=== PATIENT | male | born 1945 | race Caucasian/White ===

== ENCOUNTER 2020-12-30 07:07 | Emergency (ER) | payer OTHER, SELFPAY ==
[~2020-12-30] VITALS: Ht 182.9 cm; Wt 102.1 kg
[~2020-12-30 07:07] MED LIST: ASPI-1155 PO; CHOL100024 PO; FISH OIL PO; LISI20TA30 PO; MULT-634 PO; PROP120C2 PO; TERA10CA4 PO; VITAMIN B PO; VITAMIN C PO; [UNRECOGNIZED DRUG - CODE] PO
--- NOTE | 2020-12-30 07:07 | NUR ---
Patient to ER bed 1 to gown for evaluation. Side rails up. Report given to BERHANE METCALF.
[2020-12-30] MEDS ORDERED: VECURONIUM BROMIDE 10 MG/VIAL (NORCURON) IV ONE (07:08)
[2020-12-30] MEDS ORDERED: ETOMIDATE 20 MG/ 10 ML VIAL (AMIDATE) IVP ONE (07:08)
[2020-12-30] MEDS ORDERED: ROCURONIUM BROMIDE 10 MG/ML (ZEMURON) IV ONE (07:08)
--- NOTE | 2020-12-30 07:08 | NUR ---
PT INTUBATED UPON ARRIVAL 7.5 ET AND 25 AT TEETH.
[2020-12-30 07:09] VITALS: BP_SYST 138
--- NOTE | 2020-12-30 07:10 | NUR ---
Pt BIBA to room 1. On non rebreather mask. VS upon arrival-138/100, 104, 95%. Pt not responding to stimuli. Per , patient's last known well was last night then he suddenly became unresponsive. PMH AFib. 18G to left AC from field; Lidocaine [address] Johnston's order. Dr Johnston at bedside immediately for evaluation. No code stroke called per Dr Johnston.
--- NOTE | 2020-12-30 07:11 | NUR ---
Vecuronium 10 mg IV given per Dr Johnston to prepare for intubation.
--- NOTE | 2020-12-30 07:12 | NUR ---
# 20 gauge angiocath placed to right forearm. Use of asceptic technique. Opsite placed over site. Blood return noted. Blood for lab drawn from site. Flushed with 10 cc of normal saline. No evidence of infiltration noted. Patient tolerated well.
--- NOTE | 2020-12-30 07:13 | NUR ---
7.5 size ETT placed per Dr Johnston. Placement confirmed per auscultation and CXR.
--- NOTE | 2020-12-30 07:14 | NUR ---
COVID swab collected at bedside and sent to lab.
--- NOTE | 2020-12-30 07:20 | NUR ---
16 Fr Burger catheter placed. OGT placed; placement confirmed per auscultation and Xray.
[2020-12-30 07:33] LABS: BASOPHILS % (AUTO) 0.6 % (0.0-2.0); EOSINOPHILS % (AUTO) 0.6 % (0.0-4.0); HEMATOCRIT 36.7 % (36-54); HEMOGLOBIN 12.5 g/dL (14.0-18.0); LYMPHOCYTES # (AUTO) 0.9 K/uL (1.0-5.5); LYMPHOCYTES % (AUTO) 12.2 % (20.5-51.5); MEAN CORPUSCULAR HEMOGLOBIN 33 pg (27-31); MEAN CORPUSCULAR HGB CONC 34 % (32-36); MEAN CORPUSCULAR VOLUME 98 fL (79.0-98.0); MONOCYTES # (AUTO) 0.7 K/uL (0.0-1.0); MONOCYTES % (AUTO) 10.1 % (1.7-9.3); NEUTROPHILS # (AUTO) 5.5 K/uL (1.8-7.7); NEUTROPHILS % (AUTO) 76.5 % (40.0-70.0); PLATELET COUNT (AUTO) 134 K/uL (130-430); RED BLOOD CELL COUNT(AUTO) 3.76 MIL/uL (4.2-6.2); RED CELL DISTRIBUTION WIDTH 13.4 % (9.0-15.0); WHITE BLOOD COUNT (AUTO) 7.2 K/uL (4.8-10.8)
--- NOTE | 2020-12-30 07:34 | NUR ---
Patient transported to CT on portbale monitor.
--- NOTE | 2020-12-30 07:40 | NUR ---
Returned from CT. Bleed reported to Dr Johnston as seen on diagnostic per CT staff.
[2020-12-30] MEDS ORDERED: niCARdipine 50 MG in D5W 230 ML IV PRN (07:45)
[2020-12-30] MEDS ORDERED: niCARdipine 2.5 MG/ML, 10 ML VIAL (CARDENE) IV ONE (07:53)
[2020-12-30 07:55] LABS: ANION GAP 4 (5-15); CALCIUM 7.8 mg/dL (8.4-11.0); CHLORIDE 107 mmol/L (98-107); CREATININE 1.17 mg/dL (0.55-1.30); GLUCOSE 212 mg/dL (70-99); POTASSIUM 4.7 mmol/L (3.5-5.1); SODIUM SERUM 139 mmol/L (136-145); UREA NITROGEN, BLOOD 15 mg/dL (8-21)
[2020-12-30] MEDS ORDERED: PROPOFOL DRIP 100 ML IV ONE (08:00)
[2020-12-30] MEDS ORDERED: fentaNYL CITRATE/PF 100 MCG/2 ML AMP IVP ONE (08:00)
--- NOTE | 2020-12-30 08:00 | NUR ---
Family at bedside. Updated per RN and Dr Johnston. Given opportunity to ask questions; understanding verbalized.
[2020-12-30 08:02] LABS: ALANINE AMINOTRANSFERASE 22 U/L (12-78); ALBUMIN 3.2 g/dL (3.4-4.8); ASPARTATE AMINOTRANSFERASE 24 U/L (10-37); TOTAL BILIRUBIN 0.7 mg/dL (0.0-1.0)
[2020-12-30 08:10] LABS: ACETAMINOPHEN < 1 ug/mL (1-30); ALCOHOL, BLOOD < 3 mg/dL (<10)
--- NOTE | 2020-12-30 08:15 | NUR ---
ABG done at bedside
--- NOTE | 2020-12-30 08:34 | NUR ---
Nicardipine drip decreased to 2.[address] Preston after lastest BP was reported (113/70).
[2020-12-30 09:05] LABS: BILIRUBIN,URINE NEGATIVE (NEGATIVE); CLARITY/URINE CLEAR (CLEAR); COLOR,URINE YELLOW (YELLOW); GLUCOSE,URINE NEGATIVE (NEGATIVE); KETONES,URINE TRACE (NEGATIVE); LEUKOCYTE ESTERASE ,URINE NEGATIVE (NEGATIVE); NITRITE, URINE NEGATIVE (NEGATIVE); PH,URINE 5.5 (5.0-8.0); PROTEIN URINE TRACE (NEGATIVE); UROBILINOGEN,URINE 0.2 (0.2-1.0)
--- NOTE | 2020-12-30 09:11 | NUR ---
Nicardipine drip discontinued per Dr Johnston. BP 102/55.
--- NOTE | 2020-12-30 09:13 | NUR ---
Patient to be transferred to [facility]. Is being transferred due to higher level of care. Receiving facility has accepting physician and available space. ER physician has signed transfer form. Patient or responsible republican has agreed to transfer and signed form. Patient belongings inventoried and will be sent with patient. Copy of nursing notes, lab reports, EKG, Physicians Orders and X-rays to be sent with patient. Report called to ED RN at receiving facility. Receiving physician is ER physician (Dr Rojas). Transportation to be arranged per [facility].
[2020-12-30 09:18] LABS: BARBITURATE, URINE NEGATIVE (NEG <=200); BENZODIAZEPINE, URINE NEGATIVE (NEG <=150); CANNABINOID, URINE NEGATIVE (NEG <=50); COCAINE, URINE NEGATIVE (NEG <=150); METHAMPHETAMINES SCREEN,URINE NEGATIVE (NEG <=500); OPIATE, URINE NEGATIVE (NEG <=100); PHENCYCLIDINE SCREEN,URINE NEGATIVE (NEG <=25); UR TRICYCLIC ANTIDEPRESSANTS NEGATIVE (NEG <=300); URINE AMPHETAMINE NEGATIVE (NEG <=500); URINE METHADONE NEGATIVE (NEG <=200); URINE OXYCODONE SCREEN NEGATIVE (NEG <=100); URINE PROPOXYPHENE SCREEN NEGATIVE (NEG <=300)
[2020-12-30 09:19] LABS: BLOOD, URINE TRACE (NEGATIVE)
[2020-12-30 09:28] LABS: ACETONE, SERUM NEGATIVE (NEGATIVE)
--- NOTE | 2020-12-30 09:29 | NUR ---
Report given to Kale METCALF at [facility] ER. Awaiting ETA for ambulance; to be arranged per [facility].
[2020-12-30 09:35] LABS: C-REACTIVE PROTEIN QUANT < 0.2 mg/dL (0-0.5)
--- NOTE | 2020-12-30 10:25 | NUR ---
Pt transferred to [place] by [facility].
[2020-12-30 10:29] VITALS: BP_SYST 104
[2020-12-30 10:33] LABS: BACTERIA,URINE None Seen /HPF (None Seen); WBC,URINE NONE SEEN /HPF (0-3)
[2020-12-30 13:39] LABS: PROTHROMBIN TIME 10.9 SECS (9.5-12.5)
== END 2020-12-30 10:27 | disposition short-term general hospital (02) ==
LOC: SED 07:07
DX: I62.9 Nontraumatic intracranial hemorrhage, unspecified (principal); I10 Essential (primary) hypertension; Z88.0 Allergy status to penicillin; Z79.899 Other long term (current) drug therapy; Z20.822 Contact with and (suspected) exposure to COVID-19
CPT/HCPCS: 31500; 36415; 36600; 70450; 71045; 76376; 80053; 80307; 81000; 82009; 82140; 82550; 82803; 83605; 83880; 84484; 85025; 85610; 85730; 86140; 87040; 87426; 93005; 96365; 96366; 96375; 99291; G0480; J3010; J3490 ×2; J7060; 94002; 94760; G0481; G0482; J2704